=== PATIENT | female | born 1990 | race Asian ===

== ENCOUNTER 2017-11-02 15:01 | Outpatient (CLI) | payer OTHER, BC ==
[~2017-11-02] VITALS: Ht 160 cm; Wt 72.7 kg
[2017-11-02] MEDS ORDERED: PREN1TAB60 PO (15:13)
[2017-11-02 15:52] VITALS: BP 110/63
[2017-11-02 16:31] LABS: HEMOGLOBIN 13.4 g/dL (11.7-16.4)
[2017-11-02 16:39] LABS: RAPID INFLUENZA A Negative (Negative); RAPID INFLUENZA B Negative (Negative)
== END 2017-11-02 17:15 | disposition home or self-care (01) ==
LOC: LDOP 15:01
PROVIDERS: ATTEND Obstetrics & Gynecology
DX: O36.8130 Decreased fetal movements, third trimester, not applicable or unspecified (principal); Z3A.38 38 weeks gestation of pregnancy
CPT/HCPCS: 36415; 59025; 76819; 85025; 87400; 99201; G0463

== ENCOUNTER 2017-11-10 14:08 | Inpatient (IN) | payer OTHER, BC ==
[~2017-11-10] VITALS: Ht 160 cm; Wt 77.2 kg
[~2017-11-10 14:08] MED LIST: PREN1TAB60 PO
[2017-11-10 14:45] VITALS: BP 118/75
[2017-11-10] MEDS ORDERED: OXYTOCIN 30U/ 0.9% NaCL 500ML 500 ML IV ONE (15:04)
[2017-11-10] MEDS ORDERED: ONDANSETRON 2MG/ML, 2ML IVPush PRN (15:30)
[2017-11-10] MEDS ORDERED: FENTANYL PF 100 MCG/2ML IV PRN (15:30)
[2017-11-10] MEDS ORDERED: FENTANYL PF 100 MCG/2ML IVPush PRN (15:30)
[2017-11-10 16:00] LABS: HEMOGLOBIN 13.3 g/dL (11.7-16.4); WHITE BLOOD COUNT 8.4 x10^3/uL (3.4-10)
[2017-11-10] MEDS ORDERED: NEWBORN KIT ONE (21:10)
[2017-11-10] MEDS ORDERED: LIDOCAINE 1%, 20ML ONE (21:10)
[2017-11-10] MEDS ORDERED: MISOPROSTOL 200 MCG TABLET ONE (21:10)
[2017-11-10] MEDS ORDERED: OXYTOCIN 30U/ 0.9% NaCL 500ML 500 ML ONE (21:11)
[2017-11-10] MEDS: LACTATED RINGERS 1,000 ML IV SCH (22:13)
[2017-11-10] MEDS: OXYTOCIN 30U/ 0.9% NaCL 500ML 500 ML IV PRN (22:48)
[2017-11-11] MEDS: LACTATED RINGERS 1,000 ML IV SCH ×5 (01:08→14:28)
[2017-11-11] MEDS ORDERED: FENTANYL/BUPIV./NS/PF 250 ML EPIDCONT ONE ×2 (01:09→01:14)
[2017-11-11] MEDS ORDERED: LIDOCAINE-MPF 1%, 5ML ONE (01:14)
[2017-11-11] MEDS ORDERED: LIDOCAINE 1%-EPI 1:100K, 20ML ONE (01:14)
[2017-11-11] MEDS ORDERED: BUPIVACAINE 0.25% ONE ×2 (01:14→08:05)
[2017-11-11] MEDS ORDERED: FENTANYL/BUPIV./NS/PF 250 ML EPIDCONT SCH (01:57)
[2017-11-11] MEDS ORDERED: NALOXONE 0.4 MG/ML, 1ML IVPush PRN (02:00)
[2017-11-11] MEDS ORDERED: LACTATED RINGERS 1,000 ML IVBOLUS PRN (02:00)
[2017-11-11] MEDS ORDERED: ONDANSETRON 2MG/ML, 2ML IVPush PRN (02:00)
[2017-11-11] MEDS ORDERED: EPHEDRINE 50 MG/ML, 1ML ONE (02:07)
[2017-11-11] MEDS: EPHEDRINE 50 MG/ML, 1ML IVPush PRN ×2 (02:10→02:52)
[2017-11-11] MEDS: D5%-LACTATED RINGERS 1,000 ML IV SCH ×3 (02:39→18:39)
[2017-11-11] MEDS ORDERED: ONDANSETRON 2MG/ML, 2ML ONE (02:57)
[2017-11-11] MEDS ORDERED: AMPICILLIN 2 GM IVPB ONE (06:30)
[2017-11-11] MEDS ORDERED: FENTANYL PF 100 MCG/2ML ONE ×2 (08:05→08:10)
[2017-11-11] MEDS: AMPICILLIN 1 GM in SODIUM CHLORIDE 0.9% 50 ML IV SCH ×3 (10:23→19:00)
[2017-11-11] MEDS: OXYTOCIN 30U/ 0.9% NaCL 500ML 500 ML IV PRN (12:47)
[2017-11-11] MEDS: OXYTOCIN 30U/ 0.9% NaCL 500ML 500 ML IV SCH ×2 (12:51→22:51)
[2017-11-11] MEDS ORDERED: ONDANSETRON 2MG/ML, 2ML IV PRN (13:00)
[2017-11-11] MEDS ORDERED: HYDROcodone/APAP 5/325 TABLET PO PRN ×2 (13:00)
[2017-11-11] MEDS ORDERED: MISOPROSTOL 200 MCG TABLET PR ONE (13:00)
[2017-11-11] MEDS ORDERED: MISOPROSTOL 200 MCG TABLET PR PRN (13:00)
[2017-11-11] MEDS ORDERED: CARBOPROST TROMETHAMINE 250 MCG/ML, 1ML IM PRN (13:00)
[2017-11-11] MEDS ORDERED: METHYLERGONOVINE 0.2 MG/ML IM PRN (13:00)
[2017-11-11] MEDS ORDERED: CALCIUM CARBONATE 500 MG TAB.CHEW PO PRN (13:00)
[2017-11-11] MEDS ORDERED: ACETAMINOPHEN 325 MG TABLET PO PRN (13:00)
[2017-11-11] MEDS ORDERED: IBUPROFEN 600 MG TABLET ONE (13:13)
[2017-11-11] MEDS: IBUPROFEN 600 MG TABLET PO PRN ×2 (13:42→19:39)
[2017-11-11 16:30] VITALS: BP 116/72
[2017-11-11] MEDS: DOCUSATE 100 MG CAPSULE PO PRN (19:39)
[2017-11-11 19:42] VITALS: BP 108/68
[2017-11-11 20:10] LABS: HEMATOCRIT 33.7 % (34.6-47.8); HEMOGLOBIN 11.4 g/dL (11.7-16.4); WHITE BLOOD COUNT 15.9 x10^3/uL (3.4-10)
[2017-11-11 20:26] LABS: DIFF TOTAL CELLS COUNTED 100 CELL DIFF
[2017-11-11 20:28] LABS: VERIFY COUNTS? YES
[2017-11-12] VITALS: BP 97/57
[2017-11-12 05:00] VITALS: BP 100/51
[2017-11-12 08:00] VITALS: BP 106/69
[2017-11-12] MEDS ORDERED: PRENATAL VIT/IRON/FA 1 EACH TABLET PO SCH (09:00)
[2017-11-12] MEDS: DOCUSATE 100 MG CAPSULE PO PRN (09:37)
[2017-11-12] MEDS: IBUPROFEN 600 MG TABLET PO PRN (09:37)
[2017-11-12] MEDS ORDERED: HYDR-3240 PO (14:25)
[2017-11-12] MEDS ORDERED: IBUP-1222 PO (14:26)
== END 2017-11-12 16:00 | disposition home or self-care (01) | DRG 775 ==
LOC: LDOP 14:08 → LDIP 17:08 → 2NW 11-11 16:30
PROVIDERS: ADMIT Obstetrics & Gynecology; ATTEND Obstetrics & Gynecology
PROC: 10E0XZZ Delivery of Products of Conception, External Approach (ICD-10-PCS; principal; 2017-11-11)
PROC: 0HQ9XZZ Repair Perineum Skin, External Approach (ICD-10-PCS; 2017-11-11)
PROC: 3E0R3BZ Introduction of Anesthetic Agent into Spinal Canal, Percutaneous Approach (ICD-10-PCS; 2017-11-11)
PROC: 00HU33Z Insertion of Infusion Device into Spinal Canal, Percutaneous Approach (ICD-10-PCS; 2017-11-11)
DX: O42.92 Full-term premature rupture of membranes, unspecified as to length of time between rupture and onset of labor (principal); O70.0 First degree perineal laceration during delivery; Z37.0 Single live birth; Z3A.39 39 weeks gestation of pregnancy; Z83.3 Family history of diabetes mellitus
CPT/HCPCS: 36415; 82962; 85025; 86850; 86900; J0290; J2405; J3010; J3490; J2590; J7120; J7121